=== PATIENT | male | born 1965 | race Caucasian/White ===

== ENCOUNTER 2023-08-27 06:21 | Day surgery (SDC) | payer BC ==
[2023-08-25 16:45] LABS: Absolute Eosinophils 0.1 K/uL (0-0.5); Absolute Lymphocytes (CBC) 1.7 K/uL (0.7-4.9); Absolute Monocytes 0.8 K/uL (0.1-1.3); Basophils % 0.5 % (0-1.3); Eosinophils % 1.6 % (0-4.4); Hematocrit 52.2 % (39.6-49.0); Hemoglobin 17.4 g/dL (13.6-17.9); Lymphocytes % 19.4 % (15.3-44.8); MCHC 33.3 g/dL (32.0-36.0); MCV 90.2 fL (80-100); MPV 8.3 fL (7.6-11.3); Neutrophils % 69.5 % (41.7-73.7); Platelets 287 thou/uL (152-406); RBC Red Blood Cell Count 5.78 M/uL (4.33-5.43); Red Cell Distribution Width 15.5 % (12.1-15.2)
--- NOTE | 2023-08-25 21:47 | RAD REPORT ---
EXAM DESCRIPTION: RAD - Chest Pa And Lat (2 Views) - 08/25/2023 4:20 pm CLINICAL HISTORY: pre op for day surgery. Hypertension COMPARISON: No comparisons TECHNIQUE: PA and lateral views of the chest were obtained. FINDINGS: The lungs are clear. Heart size is normal and central vasculature is within normal limits. No pleural effusion or pneumothorax seen. No acute bony finding noted. IMPRESSION: No acute cardiopulmonary process.
[2023-08-27] MEDS: Ringers Lactate 1,000 ML IV ONE (06:40)
[2023-08-27] MEDS ORDERED: LIDOCAINE 2% MPF 5 ML VIAL ONE (07:10)
[2023-08-27] MEDS ORDERED: MIDAZOLAM HCL 2 MG/2 ML INJ ONE (07:10)
[2023-08-27] MEDS ORDERED: FENTANYL CITR 100 MCG/2 ML ONE ×2 (07:10→07:57)
[2023-08-27] MEDS ORDERED: ROCURONIUM 50 MG/5 ML VIAL IV ONE ×2 (07:10→08:13)
[2023-08-27] MEDS ORDERED: propofoL 200 MG/20 ML VIAL IV ONE (07:10)
[2023-08-27] MEDS ORDERED: FAMOTIDINE 20 MG/2 ML VIAL IV ONE (07:24)
[2023-08-27] MEDS: CEFAZOLIN SODIUM 2 GM/VIAL ONE (07:50)
[2023-08-27] MEDS ORDERED: dexAMETHasone 4 MG/ML VIAL ONE (08:15)
[2023-08-27] MEDS ORDERED: ONDANSETRON 4 MG/2 ML VIAL ONE (08:15)
[2023-08-27] MEDS ORDERED: KETOROLAC 30 MG/ML INJ ONE (08:28)
[2023-08-27] MEDS ORDERED: NEOSTIGMINE 1 MG/ML -10 ML VIAL ONE (08:29)
[2023-08-27] MEDS ORDERED: GLYCOPYRROLATE 0.2 MG/ML SYR ONE (08:29)
[2023-08-27] MEDS ORDERED: Mastisol Adhesive Liq ONE (08:44)
[2023-08-27] MEDS: FENTANYL CITR 100 MCG/2 ML ONE (09:25)
[2023-08-27] MEDS ORDERED: HYDROCODONE/APAP 7.5/325 MG TAB ONE (09:58)
[2023-08-27] MEDS: HYDROCODONE/APAP 7.5/325 MG TAB PO PRN (10:00)
[2023-08-27 10:36] VITALS: BP 123/84; O2SAT 95
--- NOTE | 2023-08-27 11:33 | P.OP ---
Date of Service: 08/27/23 Preop diagnosis: Umbilical hernia Postop diagnosis: Incarcerated umbilical hernia Procedure performed: Laparoscopic repair of incarcerated umbilical hernia Surgeon: Hill Acevedo MD Champagne Maker: None Estimated blood loss: Minimal Specimen: Hernia sac and contents Findings: As above Anesthesia: General Complications: None Drains: None Fluids and blood products: Nonapplicable Disposition: Recovery room Operative note: Patient brought to the OR and placed in supine position. General anesthesia began. Patient prepped and draped in usual sterile fashion. Marcaine 0.5% infiltrated locally. 15 blade used to make a 1 cm left upper quadrant transverse incision. Subcutaneous tissue divided and bleeding controlled cautery. Fascia identified and divided. #1 Vicryl stay suture placed. Peritoneal cavity entered with sharp and blunt dissection. 12 mm trocar placed into the peritoneal cavity under direct vision. Pneumoperitoneum established. Then a 5 mm trocar placed in the left lower quadrant under direct vision. Laparoscopy revealed incarcerated omentum in the hernia defect. The hernia defect was at the umbilicus. LigaSure used to divide the omentum. Then a 3 cm incision made over the umbilicus in the upper midline. Subcutaneous tissue divided. Hernia sac identified and dissected free from the fascial ed ges. Remnant of omentum was present inside the sac. Entire sac and contents excised and sent to pathology as specimen. Approximately a 2 cm defect remained. #1 PDS [id number] sutures used to close the defect. Medtronics mesh 12 cm placed in the peritoneal cavity and deployed in the standard fashion utilizing absorbable tackers. Complete coverage of the hernia defect accomplished with at least 3 cm borders in every direction. There was no evidence of bleeding or bowel injury appreciated. All trocars removed under direct vision. Stay sutures tied to each other to reapproximate the fascial defect. Subcutaneous wounds irrigated and bleeding controlled cautery. 3-0 chromic used to reapproximate subcutaneous tissue and close skin. Sterile dressing applied. Patient awakened and taken to recovery room in good general condition. CC:
--- NOTE | 2023-08-27 12:15 | EKG ---
Test Date: 2023-08-25 Test Time: 16:01:14 [employer] [place]: YESY MEASUREMENT RESULTS: Intervals: Rate: 83 ME: 136 QRSD: 92 QT: 342 QTc: 401 [place]: P: 30 ME: 136 QRS: 79 T: -42 INTERPRETIVE STATEMENTS: Normal sinus rhythm T wave abnormality, consider inferior ischemia Abnormal ECG No previous ECG available for comparison Electronically Signed On 08-27-23 12:13:56 CDT by Harshal Ray
== END 2023-08-27 10:55 | disposition home or self-care (01) ==
LOC: OR 06:21
PROVIDERS: ATTEND Surgery
PROC: 0WUF4JZ Supplement Abdominal Wall with Synthetic Substitute, Percutaneous Endoscopic Approach (ICD-10-PCS; principal; 2023-08-27 07:30)
DX: K42.0 Umbilical hernia with obstruction, without gangrene (principal)
CPT/HCPCS: 93005; 85025; 80048; 36415; 88302; 71046; 49594; J2704; J1100; J2710; J2001; J2250; J3010 ×3; J2405; J7120